=== PATIENT | female | born 1975 | race Caucasian/White ===

== ENCOUNTER 2018-10-31 20:15 | Emergency (ER) | payer SELFPAY ==
[~2018-10-31] VITALS: Ht 180.3 cm; Wt 149.7 kg
--- NOTE | 2018-10-31 20:49 | NUR ---
TO LOBBY A/W BED, AMBULATORY
--- NOTE | 2018-10-31 21:00 | NUR ---
AMBULATED TO BED 11.
[2018-10-31] MEDS ORDERED: ALBUTEROL SULFATE/IPRATROPIU 3 ML SOL IH ONE (21:05)
[2018-10-31] MEDS ORDERED: methylPREDNISolone SS 125 MG/2 ML VIAL IM ONE (21:05)
--- NOTE | 2018-10-31 21:05 | NUR ---
PATIENT PRESENTS TO ED WITH C/O DRY NON PRODUCTIVE COUGH X 2 DAYS +WHEEZING . PT DENIES N/V/D; SKIN IS PINK/WARM/DRY; AAOX4 WITH EVEN AND STEADY GAIT; HR EVEN AND REGULAR; PT DENIES ANY FEVER, CP, SOB, AT THIS TIME; PATIENT STATES PAIN OF 4/10 AT THIS TIME; VSS; PATIENT POSITIONED FOR COMFORT; HOB ELEVATED; BEDRAILS UP X2; BED DOWN. ER MD MADE AWARE OF PT STATUS.
--- NOTE | 2018-10-31 21:09 | NUR ---
Respiratory Therapist at bedside for respiratory intervention. Patient tolerated TX WELL.
[2018-10-31] MEDS ORDERED: predniSONE 20 MG TAB PO ONE (21:10)
--- NOTE | 2018-10-31 21:59 | NUR ---
Patient discharged with v/s stable. Written and verbal after care instructions given and explained. Patient alert, oriented and verbalized understanding of instructions. Ambulatory with steady gait. All questions addressed prior to discharge. ID band removed. Patient advised to follow up with PMD. Rx of PREDNISONE,PROMETHAZINE,ALBUTEROL given. Patient educated on indication of medication including possible reaction and side effects. Opportunity to ask questions provided and answered.
[2018-10-31 22:00] VITALS: BP 136/78
== END 2018-10-31 22:00 | disposition home or self-care (01) ==
LOC: MED 20:15
DX: J20.9 Acute bronchitis, unspecified (principal); J44.9 Chronic obstructive pulmonary disease, unspecified; Z88.8 Allergy status to other drugs, medicaments and biological substances
CPT/HCPCS: 99283; J7512; J7620; 94640